=== PATIENT | female | born 1965 | race African-American/Black ===

== ENCOUNTER 2016-12-19 17:32 | Emergency (ER) | payer OTHER ==
[~2016-12-19] VITALS: Ht 162.6 cm; Wt 170.0 kg
[2016-12-19 19:42] VITALS: BP 148/92
== END 2016-12-19 20:32 | disposition home or self-care (01) ==
LOC: EMS 17:43
DX: S83.91XA Sprain of unspecified site of right knee, initial encounter (principal); Z90.49 Acquired absence of other specified parts of digestive tract; M19.90 Unspecified osteoarthritis, unspecified site; X50.9XXA Other and unspecified overexertion or strenuous movements or postures, initial encounter; Y93.89 Activity, other specified; Y92.9 Unspecified place or not applicable; Y99.9 Unspecified external cause status
CPT/HCPCS: 99284

== ENCOUNTER 2017-01-19 08:09 | Emergency (ER) | payer OTHER ==
[~2017-01-19] VITALS: Ht 160 cm; Wt 77.2 kg
[2017-01-19 10:07] LABS: CALCIUM, TOTAL 8.6 mg/dL (8.8-10.5); CREATININE 1.15 mg/dL (0.60-1.30); POTASSIUM 3.2 mmol/L (3.5-5.1)
[2017-01-19 10:09] LABS: BASOPHILS # (AUTO) 0.02 K/uL (0.00-0.20); BASOPHILS % (AUTO) 0.2 % (0.0-2.0); EOSINOPHILS % (AUTO) 2.53 % (1.0-6.0); HEMATOCRIT 34.8 % (36-46); HEMOGLOBIN 11.6 g/dL (12.0-16.0); LYMPHOCYTES # (AUTO) 1.2 K/uL (1.0-4.8); LYMPHOCYTES % (AUTO) 14.4 % (22.0-44.0); MEAN CORPUSCULAR HEMOGLOBIN 26.5 pg (26.0-34.0); MEAN CORPUSCULAR HGB CONC 33.3 G/dL (31.0-37.0); MEAN CORPUSCULAR VOLUME 80 fL (80-100); MONOCYTES # (AUTO) 0.4 K/uL (0.1-1.0); MONOCYTES % (AUTO) 5.2 % (2.0-9.0); NEUTROPHILS # (AUTO) 6.2 K/uL (1.8-7.7); NEUTROPHILS % (AUTO) 77.8 % (40.0-70.0); PLATELET COUNT (AUTO) 268 K/uL (150-450); RED BLOOD CELL COUNT(AUTO) 4.37 MIL/uL (4.00-5.20); RED CELL DISTRIBUTION WIDTH 12.9 % (11.5-14.5)
[2017-01-19] MEDS ORDERED: SODIUM CHLORIDE 0.9% 100 ML ONE (11:05)
[2017-01-19] MEDS ORDERED: IOVERSOL 320 MG/ML 100 ML VIAL ONE (11:05)
[2017-01-19 12:53] VITALS: BP 136/74
== END 2017-01-19 12:56 | disposition home or self-care (01) ==
LOC: EMS 08:11
DX: J18.8 Other pneumonia, unspecified organism (principal); I10 Essential (primary) hypertension
CPT/HCPCS: 36415; 71010; 71260; 80048; 85025; 99285; J7050; Q9967

== ENCOUNTER 2017-01-21 10:36 | Emergency (ER) | payer OTHER ==
[~2017-01-21] VITALS: Ht 160 cm; Wt 72.7 kg
[2017-01-21] MEDS ORDERED: AZIT250T6 PO (10:39)
[2017-01-21] MEDS ORDERED: IPRATROPIUM BROMIDE 0.5 MG/2.5 ML NEB SOLUTION NEB ONE ×2 (10:59→11:00)
[2017-01-21] MEDS ORDERED: ALBUTEROL SULFATE 2.5 MG/0.5 ML NEB SOLUTION NEB ONE ×2 (10:59→11:00)
[2017-01-21] MEDS ORDERED: ONDANSETRON HCL 4 MG/2 ML VIAL IVP ONE ×2 (11:00→15:00)
[2017-01-21] MEDS ORDERED: DIPHENOXYLATE/ATROP 2.5-0.025 MG TABLET PO ONE (11:00)
[2017-01-21 11:10] LABS: BASOPHILS % (AUTO) 0.3 % (0.0-2.0); EOSINOPHILS % (AUTO) 3.5 % (1.0-6.0); HEMATOCRIT 38.9 % (36-46); HEMOGLOBIN 12.9 g/dL (12.0-16.0); LYMPHOCYTES # (AUTO) 1.7 K/uL (1.0-4.8); LYMPHOCYTES % (AUTO) 25.2 % (22.0-44.0); MEAN CORPUSCULAR HGB CONC 33.1 G/dL (31.0-37.0); MEAN CORPUSCULAR VOLUME 79 fL (80-100); MONOCYTES # (AUTO) 0.3 K/uL (0.1-1.0); MONOCYTES % (AUTO) 5.1 % (2.0-9.0); NEUTROPHILS # (AUTO) 4.5 K/uL (1.8-7.7); NEUTROPHILS % (AUTO) 65.9 % (40.0-70.0); PLATELET COUNT (AUTO) 383 K/uL (150-450); RED BLOOD CELL COUNT(AUTO) 4.94 MIL/uL (4.00-5.20); RED CELL DISTRIBUTION WIDTH 13.1 % (11.5-14.5); WHITE BLOOD COUNT (AUTO) 6.8 K/uL (4.5-11.0)
[2017-01-21 11:19] LABS: ANION GAP 12 mmol/L (8-16); CARBON DIOXIDE 28 mmol/L (22-29); CHLORIDE 105 mmol/L (98-107); CREATININE 1.05 mg/dL (0.60-1.30); GLOMERULAR FILTR. RATE CALC > 60 mL/min (>60); POTASSIUM 3.7 mmol/L (3.5-5.1); SODIUM SERUM 145 mmol/L (136-145); UREA NITROGEN, BLOOD 13 mg/dL (7-18)
[2017-01-21 11:24] LABS: ALANINE AMINOTRANSFERASE 64 U/L (12-78); ALBUMIN 3.5 g/dL (3.4-5.0); ASPARTATE AMINOTRANSFERASE 44 U/L (15-37); BILIRUBIN,TOTAL 0.4 mg/dL (0.1-1.0); TOTAL PROTEIN, SERUM 8.8 g/dL (6.4-8.2)
[2017-01-21] MEDS ORDERED: SODIUM CHLORIDE 0.9% 1,000 ML IV ONE (11:45)
[2017-01-21] MEDS ORDERED: MAG HYDROX/AL HYDROX/SIMETH ES 30 ML SUSPENSION UDCUP PO ONE (13:00)
[2017-01-21] MEDS ORDERED: MORPHINE SULFATE 2 MG/ML SYRINGE IVP ONE (15:00)
[2017-01-21 16:10] VITALS: BP 133/88
== END 2017-01-21 17:19 | disposition home or self-care (01) ==
LOC: EMS 10:38
DX: R10.13 Epigastric pain (principal); R10.31 Right lower quadrant pain; R11.2 Nausea with vomiting, unspecified; R19.7 Diarrhea, unspecified; I10 Essential (primary) hypertension
CPT/HCPCS: 36415; 71010; 80053; 83690; 85025; 94640; 96361; 96374; 96375; 96376; 99285; J2270; J2405; J7613